=== PATIENT | female | born 1985 | race Caucasian/White ===

== ENCOUNTER 2020-07-26 10:10 | Observation (INO) | payer OTHER ==
[~2020-07-26] VITALS: Ht 157 cm; Wt 68.0 kg
[2020-07-26] MEDS ORDERED: PNV1TABL77 PO (10:15)
[2020-07-26 10:45] VITALS: BP 114/64
== END 2020-07-26 12:15 | disposition home or self-care (01) ==
LOC: 4S 10:10
PROVIDERS: ADMIT Obstetrics & Gynecology; ATTEND Obstetrics & Gynecology
DX: O09.523 Supervision of elderly multigravida, third trimester (principal); Z3A.28 28 weeks gestation of pregnancy
CPT/HCPCS: 59025; 76811; 99219

== ENCOUNTER 2020-07-30 09:13 | Observation (INO) | payer OTHER ==
[~2020-07-30 09:13] MED LIST: PNV1TABL77 PO
[2020-07-30 09:41] LABS: COVID AG,FIA SOURCE NASOPHARYNGEAL
== END 2020-07-30 09:15 | disposition home or self-care (01) ==
LOC: 4S 09:13
PROVIDERS: ADMIT Obstetrics & Gynecology; ATTEND Obstetrics & Gynecology
DX: O09.523 Supervision of elderly multigravida, third trimester (principal); Z20.822 Contact with and (suspected) exposure to COVID-19; Z3A.38 38 weeks gestation of pregnancy
CPT/HCPCS: 87426; 99219

== ENCOUNTER 2020-07-30 11:00 | Inpatient (IN) | payer OTHER ==
[~2020-07-30] VITALS: Ht 152.4 cm; Wt 68.0 kg
[2020-07-30] MEDS ORDERED: OXYTOCIN 10 UNITS/ML VIAL IM ONE (12:00)
[2020-07-30] MEDS ORDERED: EPHEDrine SULFATE 50 MG/ML VIAL IM ONE (12:00)
[2020-07-30] MEDS ORDERED: 0.9% SODIUM CHLORIDE 10 ML VIAL IVP ONE (12:00)
[2020-07-30] MEDS ORDERED: FentaNYL CITRATE PF 100 MCG/2 ML VIAL IVP ONE (12:00)
[2020-07-30] MEDS ORDERED: ONDANSETRON HCL 4 MG/2 ML VIAL IVP ONE (12:00)
[2020-07-30] MEDS ORDERED: CITRIC ACID/SODIUM CITRATE 30 ML SOLUTION UDCUP PO ONE (12:30)
[2020-07-30] MEDS ORDERED: METOCLOPRAMIDE HCL 5 MG/ML 2 ML VIAL IVP ONE (12:30)
[2020-07-30] MEDS ORDERED: RINGERS SOLUTION,LACTATED 1,000 ML IV ONE ×2 (12:30→12:41)
[2020-07-30] MEDS ORDERED: BUPIVACAINE HCL/DEX-WATER/PF 0.75% 2 ML AMP ITH ONE (12:40)
[2020-07-30] MEDS ORDERED: MORPHINE SULFATE/PF 0.5 MG/ML 10 ML AMP ONE (12:40)
[2020-07-30] MEDS ORDERED: SODIUM CHLORIDE 0.9% 1,000 ML ONE (12:41)
[2020-07-30 12:49] VITALS: BP 109/72
[2020-07-30] MEDS ORDERED: METHYLERGONOVINE MALEATE 0.2 MG/ML VIAL IM PRN (13:00)
[2020-07-30 14:03] LABS: BASOPHILS % (AUTO) 0.3 % (0.0-2.0); EOSINOPHILS % (AUTO) 0.2 % (1.0-6.0); HEMATOCRIT 36.3 % (36-46); HEMOGLOBIN 12.3 g/dL (12.0-16.0); LYMPHOCYTES # (AUTO) 1.7 K/uL (1.0-4.8); LYMPHOCYTES % (AUTO) 29.8 % (22.0-44.0); MEAN CORPUSCULAR HEMOGLOBIN 33.4 pg (26.0-34.0); MEAN CORPUSCULAR HGB CONC 33.9 G/dL (31.0-37.0); MEAN CORPUSCULAR VOLUME 99 fL (80-100); MONOCYTES # (AUTO) 0.4 K/uL (0.1-1.0); MONOCYTES % (AUTO) 6.9 % (2.0-9.0); NEUTROPHILS # (AUTO) 3.6 K/uL (1.8-7.7); NEUTROPHILS % (AUTO) 62.8 % (40.0-70.0); PLATELET COUNT (AUTO)-OB 145 K/uL (150-450); RED BLOOD CELL COUNT(AUTO) 3.68 MIL/uL (4.00-5.20); RED CELL DISTRIBUTION WIDTH 13.3 % (11.5-14.5)
[2020-07-30] MEDS ORDERED: FentaNYL CITRATE PF 100 MCG/2 ML VIAL IVP PRN ×2 (14:15→18:00)
[2020-07-30] MEDS ORDERED: HYDROmorphone 2 MG/ML SYRINGE IVP PRN (14:15)
[2020-07-30] MEDS ORDERED: MEPERIDINE-PF 25 MG/ML VIAL IVP PRN (14:15)
[2020-07-30] MEDS ORDERED: TRANEXAMIC ACID 1,000 MG/10 ML VIAL ONE (15:03)
[2020-07-30] MEDS ORDERED: LANOLIN 7 GM OINTMENT TP PRN (15:45)
[2020-07-30] MEDS ORDERED: ACETAMINOPHEN/CODEINE 300-30 MG TABLET PO PRN ×2 (15:45)
[2020-07-30] MEDS ORDERED: DiphenhydrAMINE HCL 50 MG/ML VIAL IVP PRN (18:00)
[2020-07-30] MEDS ORDERED: NALBUPHINE HCL 10 MG/ML VIAL IVP PRN ×2 (18:00)
[2020-07-30] MEDS ORDERED: NALOXONE HCL 0.4 MG/ML VIAL IVP PRN (18:00)
[2020-07-30] MEDS ORDERED: MORPHINE SULFATE 10 MG/ML SYRINGE IVP PRN (18:00)
[2020-07-30] MEDS ORDERED: ONDANSETRON HCL 4 MG/2 ML VIAL IVP PRN (18:00)
[2020-07-30] MEDS: ACETAMINOPHEN 1000 MG/ISO-OSM 100 ML IV SCH (18:27)
[2020-07-30] MEDS: DEXTROSE 5%-0.45% SODIUM CHL 1,000 ML IV SCH ×2 (18:28→23:08)
[2020-07-30] MEDS ORDERED: OXYGEN THERAPY IH SCH ×3 (20:00)
[2020-07-30] MEDS ORDERED: INFLUENZA VIRUS VACCINE QVS 2020-21 (6MO+)/PF 60 MCG/0.5 ML SYRINGE IM ONE (20:45)
[2020-07-30] MEDS: KETOROLAC TROMETHAMINE 30 MG/ML VIAL IVP SCH (23:59)
[2020-07-31] MEDS ORDERED: DEXTROSE 5%-0.45% SODIUM CHL 1,000 ML IV ONE (01:26)
[2020-07-31] MEDS: ACETAMINOPHEN 1000 MG/ISO-OSM 100 ML IV SCH (02:22)
[2020-07-31] MEDS: DEXTROSE 5%-0.45% SODIUM CHL 1,000 ML IV SCH (04:37)
[2020-07-31] MEDS: KETOROLAC TROMETHAMINE 30 MG/ML VIAL IVP SCH (06:32)
[2020-07-31] MEDS: MAGNESIUM HYDROXIDE SUSPENSION 30 ML UDCUP PO SCH ×2 (08:50→20:52)
[2020-07-31] MEDS: IBUPROFEN 800 MG TABLET PO SCH ×3 (08:50→20:52)
[2020-08-01] MEDS: IBUPROFEN 800 MG TABLET PO SCH ×4 (02:24→21:00)
[2020-08-01] MEDS: MAGNESIUM HYDROXIDE SUSPENSION 30 ML UDCUP PO SCH ×2 (09:28→21:00)
[2020-08-02] MEDS: IBUPROFEN 800 MG TABLET PO SCH ×2 (02:45→09:38)
[2020-08-02] MEDS ORDERED: IBUP-2071 PO (09:22)
== END 2020-08-02 11:40 | disposition home or self-care (01) | DRG 788 ==
LOC: 4S 11:00 → OBSVTOIN 11:00 → 4S 18:06
PROVIDERS: ADMIT Obstetrics & Gynecology; ATTEND Obstetrics & Gynecology
PROC: 10D00Z1 Extraction of Products of Conception, Low, Open Approach (ICD-10-PCS; principal; 2020-07-30)
PROC: 3E02340 Introduction of Influenza Vaccine into Muscle, Percutaneous Approach (ICD-10-PCS; 2020-07-30)
DX: O82 Encounter for cesarean delivery without indication (principal); Z3A.38 38 weeks gestation of pregnancy; Z37.0 Single live birth; Z23 Encounter for immunization
CPT/HCPCS: 86850; 86900; 86901; 87081; 90686; J0131; J0690; J1885; J2274; J2405; J2590; J2765; J3010; J3490; J7030; J7120